=== PATIENT | female | born 1980 | race Caucasian/White ===

== ENCOUNTER → 2016-07-02 | Outpatient (CLI) | payer OTHER ==
[~2016-07-02] MED LIST: CYMBALTA60 MG PO; FISH OIL1200 MG PO; GIN-ZING100 MG PO; OXYCODONE HCL5 MG PO; PERCOCET1 TA1 PO; SEROQUEL25 MG PO; VITAMIN B COMPLE1 PO; XANAX0.5 MG PO
== END ==
LOC: LAB SRH 18:54
DX: N93.9 Abnormal uterine and vaginal bleeding, unspecified (principal)
CPT/HCPCS: 90001; 90047; 90074; 90155; 90364; 91004; 92863; 95059; 98428

== ENCOUNTER 2016-07-05 06:01 | Day surgery (SDC) | payer OTHER ==
--- NOTE | 2016-06-01 16:26 | HISTORY AND PHYSICAL ---
ADMITTED: 06/07/2016 CHIEF COMPLAINT: 1. Pelvic pain with back pain. 2. Abnormal uterine bleeding, requesting endometrial ablation. HISTORY OF PRESENT ILLNESS: The patient has had several visits discussing her abnormal uterine bleeding and other small complaints in her life, fibromyalgia, anxiety, depression were also part of her presentation. The patient has had multiple options given. Endometrial biopsy was performed and there was normal size uterus and normal pathology. She has now been cleared for having hydrothermal ablation using Margareth 2 system [employer]. MEDICAL/SURGICAL HISTORY: Menstrual history: Onset age 17. Otherwise normal. Obstetric history: Negative. Past surgical history: Tonsillectomy, endometrial biopsy. Medical history: Fibromyalgia, depression and anxiety for which she stated that she was bedridden for 6 months at one time. Otherwise, she states she has anxiety and depression and fibromyalgia with self restraint at home in bed. MEDICATIONS: 1. Alprazolam 0.5 mg a day. 2. Cymbalta 60 mg a day. ALLERGIES: 1. none known SOCIAL HISTORY: Positive for tobacco, occasionally for alcohol. Drugs, she takes oils marijuana weekly. FAMILY HISTORY: Noncontributory, hypertension in father, maternal grandmother, maternal grandfather, paternal aunts diabetes, paternal cancer in mother, breast. Uncle has cancer, paternal grandfather has cancer. REVIEW OF SYSTEMS: Alert and oriented with her ----- in her lap. Aware of abnormal uterine bleeding. Genitourinary: Purpose of surgery. Cardiovascular: No shortness of breath or chest pain. Gastrointestinal: Normal daily bowel movements. PHYSICAL EXAMINATION: VITAL SIGNS: Weight 145, 5 feet 6, 66 inches, 110/66, pulse and temperature normal. SKIN/HAIR/INTEGUMENT: Normal. HEENT: Grossly intact. BREASTS: Not examined. LUNGS: Clear. HEART: Regular rate and rhythm. ABDOMEN: Benign. EXTREMITIES: Normal. No clubbing, cyanosis, erythema. PELVIC: Normal per exam when endometrial biopsy performed. RECTAL: Not done. LAB/IMAGING: Pending. IMPRESSION: 1. Abnormal uterine bleeding. 2. Other social and psychological issues. 3. Back pain. PLAN: Hydrothermal ablation. Informed consent given. Risks and benefits, possibility of blood loss, need for transfusion, infection, damage to pelvic and nonpelvic organs requiring additional surgery, all kinds of complications that could be noted from a motor vehicle accident. The patient understands and accepts.
[~2016-07-05 06:01] MED LIST changes: -OXYCODONE HCL5 MG PO; -PERCOCET1 TA1 PO; -SEROQUEL25 MG PO
[2016-07-05] MEDS ORDERED: PERCOCET1 TA1 PO (08:58)
--- NOTE | 2016-07-05 09:01 | Provider's Discharge Care Plan ---
Problem, Goal, Plan Problem List 1. Post-operative pain Goals: Improve disease control Instructions: Follow up as needed
--- NOTE | 2016-07-05 09:01 | Provider's Discharge Care Plan ---
Problem, Goal, Plan Problem List 1. Post-operative pain Goals: Improve disease control Instructions: Follow up as needed
--- NOTE | 2016-07-05 09:20 | OPERATIVE REPORT ---
DATE OF SURGERY: 07/05/2016 SURGEON: Kevin Nugent MD DIRECTOR OF ONLINE EDUCATION: None. PREOPERATIVE DIAGNOSES: 1. Abnormal uterine bleeding POSTOPERATIVE DIAGNOSES: 1. Abnormal uterine bleeding PROCEDURE PERFORMED: 1. Dilatation hysteroscope, hydrothermal ablation with Margareth type 2 Owl[employer] equipment ANESTHESIA: CONSTRUCTION EQUIPMENT MECHANIC Tasia, general endotracheal, 10 mL cervical block 0.25% bupivacaine and 1:200,000 epinephrine, see 4 pictures. Anesthesia for fluids and drains. SURGICAL FINDINGS: Very heavy growth of endometrial polyps, see 4 pictures. COMPLICATIONS: None. CONDITION: Good. MATERIALS: No blood, no grafts, no implants. PATHOLOGY SPECIMEN: Combined endocervical and endometrial specimens for pathology, a significant amount. SURGICAL TECHNIQUE: The patient was prepped and draped in the usual fashion after an adequate level of anesthesia and a time-out, speculum was placed. A single-tooth tenaculum was placed. The uterus sounded to normal 7 cm and a gradual dilation to 7 mm, requiring additional small amount of dilatation, we placed the equipment, visualization was performed and checked for secure fluid level was performed. The patient had a 10 minute heating ablation. No significant change in fluid volumes. Before the procedure was done, there was a significant amount of endometrial polyp tissue noted and scraping with a 10 mm curette collected approximately 5 mL of tissue and clot. The procedure was finished after 10 minutes of timing, a minute and a half to cool off. Instruments were removed, single-toothed tenaculum, hemostatic after removal. Sponge, needle, tape and instrument count was correct x2. The patient tolerated the procedure well and went to the recovery room in good condition. She will be discharged home later today on Percocet. Warnings and precautions. The patient is to follow up in 1 week. Discharge orders written.
--- NOTE | 2016-07-05 09:20 | OPERATIVE REPORT ---
DATE OF SURGERY: 07/05/2016 SURGEON: Kevin Nugent MD GERIATRIC PHYSICIAN: None. PREOPERATIVE DIAGNOSES: 1. Abnormal uterine bleeding POSTOPERATIVE DIAGNOSES: 1. Abnormal uterine bleeding PROCEDURE PERFORMED: 1. Dilatation hysteroscope, hydrothermal ablation with Margareth type 2 Pulse 8 equipment ANESTHESIA: HIDE CURER Tasia, general endotracheal, 10 mL cervical block 0.25% bupivacaine and 1:200,000 epinephrine, see 4 pictures. Anesthesia for fluids and drains. SURGICAL FINDINGS: Very heavy growth of endometrial polyps, see 4 pictures. COMPLICATIONS: None. CONDITION: Good. MATERIALS: No blood, no grafts, no implants. PATHOLOGY SPECIMEN: Combined endocervical and endometrial specimens for pathology, a significant amount. SURGICAL TECHNIQUE: The patient was prepped and draped in the usual fashion after an adequate level of anesthesia and a time-out, speculum was placed. A single-tooth tenaculum was placed. The uterus sounded to normal 7 cm and a gradual dilation to 7 mm, requiring additional small amount of dilatation, we placed the equipment, visualization was performed and checked for secure fluid level was performed. The patient had a 10 minute heating ablation. No significant change in fluid volumes. Before the procedure was done, there was a significant amount of endometrial polyp tissue noted and scraping with a 10 mm curette collected approximately 5 mL of tissue and clot. The procedure was finished after 10 minutes of timing, a minute and a half to cool off. Instruments were removed, single-toothed tenaculum, hemostatic after removal. Sponge, needle, tape and instrument count was correct x2. The patient tolerated the procedure well and went to the recovery room in good condition. She will be discharged home later today on Percocet. Warnings and precautions. The patient is to follow up in 1 week. Discharge orders written.
[2016-10-15] MEDS ORDERED: SEROQUEL25 MG PO (12:31)
[2016-10-15] MEDS ORDERED: OXYCODONE HCL5 MG PO (12:32)
== END 2016-07-05 11:30 | disposition home or self-care (01) ==
LOC: OR SRH 06:01 → SCU SRH 06:33
PROVIDERS: Obstetrics & Gynecology
PROC: 0UDB8ZX Extraction of Endometrium, Via Natural or Artificial Opening Endoscopic, Diagnostic (ICD-10-PCS; principal; 2016-07-05 07:30)
PROC: 0U5B8ZZ Destruction of Endometrium, Via Natural or Artificial Opening Endoscopic (ICD-10-PCS; principal; 2016-07-05 07:30)
DX: N93.9 Abnormal uterine and vaginal bleeding, unspecified (principal); N84.0 Polyp of corpus uteri; R10.2 Pelvic and perineal pain
CPT/HCPCS: 29240; 50002; 60001; 70002; 80212; 80575; 80996; 83432

== ENCOUNTER 2016-09-18 15:23 | Outpatient (CLI) | payer OTHER ==
[~2016-09-18 15:23] MED LIST changes: +PERCOCET1 TA1 PO
[2016-10-15] MEDS ORDERED: SEROQUEL25 MG PO (12:31)
[2016-10-15] MEDS ORDERED: OXYCODONE HCL5 MG PO (12:32)
== END 2016-09-18 23:00 ==
LOC: LAB SRH 15:23
DX: N93.9 Abnormal uterine and vaginal bleeding, unspecified (principal)
CPT/HCPCS: 90074; 93140; 95059; 98428

== ENCOUNTER 2016-09-28 14:58 | Outpatient (CLI) | payer OTHER ==
--- NOTE | 2016-09-28 16:36 | DIAGNOSTIC IMAGING REPORT ---
PROCEDURE: US COMPLETE PELVIC W/TRANSVAG INDICATION: AUB TECHNIQUE: Transabdominal and endovaginal hernandez scale and color Doppler sonographic images of the female pelvis were obtained. COMPARISON: None. FINDINGS: TRANSABDOMINAL SCANS: Retroverted uterus. Left adnexal cyst. Normal kidneys. TRANSVAGINAL SCANS: The uterus measures 7.8 x 3.9 x 5.7 cm. There is a 2.4 x 2.2 x 1.4 cm heterogeneous area in the posterior myometrium suggestive of a fibroid. Normal endometrium measures 5.9 mm. Enlarged left ovary measures 7.1 x 4.9 x 4.6 cm with a 2.6 cm simple cyst and adjacent 6.1 x 5.9 x 4.2 cm hypoechoic mass with homogeneous internal echoes suggestive of a hemorrhagic cyst or endometrioma. Right ovary measures 2.5 x 2.1 x 2.7 cm with a 2 cm corpus luteum cyst. No free fluid in the cul-de-sac. IMPRESSION: 1. Retroverted uterus with 2.4 cm suspected posterior fibroid 2. 6.1 cm left ovarian hemorrhagic cyst versus endometrioma with additional 2.6 cm simple cyst.
[2016-10-15] MEDS ORDERED: SEROQUEL25 MG PO (12:31)
[2016-10-15] MEDS ORDERED: OXYCODONE HCL5 MG PO (12:32)
== END 2016-09-28 23:00 ==
LOC: US SRH 14:58
DX: N93.9 Abnormal uterine and vaginal bleeding, unspecified (principal); N85.4 Malposition of uterus

== ENCOUNTER 2016-10-15 16:12 | Outpatient (CLI) | payer OTHER ==
[~2016-10-15 16:12] MED LIST changes: +OXYCODONE HCL5 MG PO; +SEROQUEL25 MG PO
== END 2016-10-15 23:00 ==
LOC: LAB SRH 16:12
DX: N93.9 Abnormal uterine and vaginal bleeding, unspecified (principal)
CPT/HCPCS: 90001; 90004; 90047; 90074; 90155; 90197; 90364; 90469; 91004; 92863; 95059

== ENCOUNTER 2016-10-18 07:19 | Day surgery (SDC) | payer OTHER ==
--- NOTE | 2016-10-08 16:32 | HISTORY AND PHYSICAL ---
ADMITTED: 10/18/2016 CHIEF COMPLAINT: 1. Persistent pain, status post unsuccessful hydrothermal ablation for pelvic pain and abnormal uterine bleeding HISTORY OF PRESENT ILLNESS: For reference, see history and physical on procedure done in the past few months. The patient has had return of bleeding and pelvic pain and has pain with intercourse. She has an ultrasound that was performed 09/28/2016, 1 week previous, showing enlarged area, approximately a 2.4 cm, consistent with a 1-inch fibroid in the posterior myometrium. She also has a large left ovarian mass, greater than 7 cm, simple cyst, and hypoechoic masses suggestive of hemorrhage or hemorrhagic cyst or endometrioma. The right ovary is essentially normal. Additional information with regard to this potential pain and drainage of the cyst as well as left ovary removal are discussed for possibilities during . I had a long discussion about the supracervical hysterectomy, possible seeding, and her age of 36 and the possibility of loss of one of her ovaries. Also cancer was discussed, as a rare possibility. Informed consent was given to the patient. Risks, benefits, complications, alternatives, possibility of blood loss, need for transfusion, infection, damage to pelvic and nonpelvic organs requiring additional surgery, were discussed with the patient. She understands and accepts. Those were given to the patient with her last surgery. The risks and benefits were also described in more detail, since this is a more extensive surgery than hydrothermal ablation. MEDICAL/SURGICAL HISTORY: Menstrual history: Onset age 17. Contraception: Negative history. history: Negative. history: Negative. Past surgical history: Tonsillectomy, endometrial biopsy, endometrial ablation, unsuccessful. Medical history: Fibromyalgia, pelvic pain in general. MEDICATIONS: 1. Seroquel 25 mg. 2. Alprazolam 0.5 mg for anxiety. ALLERGIES: 1. ERYTHROMYCIN. HAS AN INTOLERANCE ONLY, CAUSING VOMITING. SOCIAL HISTORY: Light tobacco smoke, light alcohol, light marijuana use. FAMILY HISTORY: Mother, father, siblings: Benign. Hypertension in the father, maternal aunt. Diabetes in maternal grandfather, paternal uncle. Breast cancer in mother. REVIEW OF SYSTEMS: Benign. The patient is alert and oriented x3, doing well. Genitourinary: Purpose of the surgery. Cardiovascular: No shortness of breath or chest pain. Gastrointestinal: Normal daily bowel movements. PHYSICAL EXAMINATION: VITAL SIGNS: The patient is 5 feet 6 inches, 136 pounds. Blood pressure 114/68, pulse and temperature normal. SKIN/HAIR/INTEGUMENT: Normal grossly. HEENT: Grossly negative. BREASTS: Exam not done. LUNGS: Clear. HEART: Regular rate and rhythm. ABDOMEN: Benign. EXTREMITIES: Normal. No significant clubbing, cyanosis, erythema or edema. PELVIC: As previously noted with the previous surgery. Tenderness. PELVIC/RECTAL: Exam not done. Pelvic and rectal are from previous exams. LAB/IMAGING: Laboratory pending. IMPRESSION: 1. Persistent bleeding 2. Failed hydrothermal ablation. 3. Pelvic pain 4. Left ovarian cyst PLAN: Informed consent with risks and benefits given to the patient in detail. Plan is for a 3 or 4 puncture laparoscopic hysterectomy, supracervical in nature, possibility of seeding in the future was given to the patient, as well as possible left cyst removal, possibility of loss of the left ovary. The patient understands and accepts.
[~2016-10-18] VITALS: Ht 170.2 cm; Wt 61.3 kg
--- NOTE | 2016-10-18 08:42 | NUR ---
PREOP INSTRUCTIONS GIVEN TO PATIENT AND HER COUSIN. QUESTIONS ANSWERED. PATIENT VERBALIZES UNDERSTANDING. CONSENT CONFIRMED. NO PREOP MEDICATIONS GIVEN. PATIENT RESTING COMFORTABLY. KB
[2016-10-18] MEDS ORDERED: PERCOCET1 TA1 PO (11:37)
--- NOTE | 2016-10-18 12:04 | NUR ---
PT IS AWAKE AND ALERT. PT DENIES NAUSEA. PT STATES THAT HER ABDOMINAL AMANDA IS " MUCH BETTER" AFTER FENTANYL 25MC IV X 4. TORADOL 30MG IV WAS GIVEN BY ANESTESIA PROVIDER AT 1115. OFIRMEV 1000 MG IV WAS GIVEN AT 0945 ( SEE ANESTESIA RECORD). ABDOMEN IS SOFT, DRESSING IS CLEAN AND DRY. VSS. THERE IS NO EVIDENCE OF VAGINAL BLEEDING. MD TALKED TO PT IN PACU. QUESTIONS ENCOURAGED AND ANSWERED. PT VERBALIZED UNDERSTANDING. REPORT GIVEN TO RN.
--- NOTE | 2016-10-18 12:49 | NUR ---
PATIENT RETURNED TO THE FLOOR AWAKE AND TALKING. VSS. APPEARS PALE. DENIES NAUSEA. PO OFFERED. KB
--- NOTE | 2016-10-18 13:02 | NUR ---
OXYCODONE 10MG PO GIVEN. REPOSITIONED. LIGHTS DIMMED. KB
--- NOTE | 2016-10-18 13:53 | OPERATIVE REPORT ---
DATE OF SURGERY: 10/18/2016 SURGEON: Kevin Nugent MD FRAME SAMPLE AND PATTERN SUPERVISOR: Maria Guadalupe Hays MD. Consulting Surgeon Dr. Neal general surgery for adhesions of the posterior uterus to large bowel, extensive. PREOPERATIVE DIAGNOSIS: 1. Abnormal uterine bleeding persisting after a failed hydrothermal ablation for amenorrhea, pelvic pain POSTOPERATIVE DIAGNOSES: 1. Stage IV endometriosis in the pelvis 2. A 7 cm left endometrioma 3. Multiple adhesions PROCEDURE PERFORMED: 1. 5 Port Operative Laparoscopy 2. Extensive lysis of adhesions/endometriosis in pelvis 3. Supracervical hysterectomy by morcellation 4. Bilateral salpingectomy 5. Left oophorectomy and drainage of 7 cm endometrioma with lysis of adhesions ANESTHESIA: General endotracheal. ANESTHESIOLOGIST: WANDA Snow 25 mL of local for 5 port sites, 0.5 bupivacaine with 1:200,000 epinephrine. SURGICAL FINDINGS: As noted in the surgical procedure. Stage 4 endometriosis socked in the pelvis, left chocolate cyst/endometrioma of ovary, significant adhesions posterior fundus of the uterus to large bowel, requiring surgical consult for safe dissection. SURGICAL TECHNIQUE: The patient was prepped and draped in the usual fashion. 2 g of Ancef had been given and a time-out procedure was done. The 4 ports were placed in the usual fashion. An 11 mm subumbilical with 2 liters of CO2 insufflated. A 5 mm suprapubically and two 5 mm laterally. The abdomen was visualized. Due to significant pelvic adhesions, a larger than average amount of Trendelenburg was used to identify and elevate the uterus in the pelvis, some milder fundal adhesions were dissected, see 11 pictures. There was some left adnexal dissection performed, we started posterior and there was seen to be thicker adhesions were obvious bowel. At this point, Dr. Neal was called. It was several minutes before he came in, we the right ovary and tube the uterus and then the transverse cervical ligaments to some extent and then we worked on the left, which was more difficult due to the significant adhesions and a 7 cm ovary which turned out to be a chocolate cyst/endometrioma. At this point, Dr. Neal entered. See his dictation. After Dr. Neal exposed the nature of the chocolate cyst, endometriosis and performed extensive dissection posterior to the uterus and this large bowel, good hemostasis was noted throughout. We proceeded with a simple procedure of supracervical hysterectomy removing the pieces through the 15 mm morcellator. All small specimens were removed to minimize seeding with infusion of 1+ liters to irrigate and dilute any particulate matter in the pelvis. Good hemostasis and good cauterization of the small endocervical canal and the procedure was terminated. The gas was allowed to escape. Dr. Neal had placed a fifth port lateral to the subumbilical, there were no significant complications in the course or difficulty and no significant blood loss. The patient might stay overnight due to some slow resolution of gastrointestinal function. At the end of the case, the 2 incisions 11 and 15 mm had a [id number] of 4-0 poly used and Steri-Strips. The patient did well. Sponge, needle, tape and instrument count was correct x2. The patient tolerated the procedure well and went to the recovery room in good condition.
--- NOTE | 2016-10-18 14:24 | NUR ---
PATIENT RESTING COMFORTABLY. VSS. KB
--- NOTE | 2016-10-18 15:42 | NUR ---
PATIENT UP TO BR. VERY PALE. VOIDED SMALL AMOUNT. DRESSINGS DRY WITH SMALL AMOUNTS OF BLOOD. NO ACTIVE BLEEDING. NO VAGINAL DISCHARGE. PAIN 12/17. DILAUDID 1MG/ZOFRAN 4MG FOR NAUSEA AND PAIN. WILL TRANSFER TO ACUTE CARE TO CONTINUE RECOVERY. IV AT TKO. KB
--- NOTE | 2016-10-18 18:16 | NUR ---
PATIENT C/O ITCHING AFTER BEING MEDICATED WITH PO OXYCODONE AND IV HYDROMORPHONE. MEDICATED WITH VISTARIL PO ORDERED. PATIENT AMB UP IN [facility] FOR 1 LOOP, TOLERATED WELL WITH FAMILY AMBULATING WITH PATIENT. TOLERATING PO FOOD/ FLUIDS WITHOUT ANY N/V. WILL CONTINUE TO MONITOR.
[2016-10-18 18:19] VITALS: BP 99/60
[2016-10-18 21:01] VITALS: BP 98/72
[2016-10-19 00:30] VITALS: BP 98/49
[2016-10-19 05:00] VITALS: BP 86/42
[2016-10-19 09:08] VITALS: BP 101/61
--- NOTE | 2016-10-19 09:14 | NUR ---
Pain controlled with medications administered. Patient up and about in halls walking. Discussion regarding diet, discharge, adhesions, healing, follow up care held with family member present. Dr Nugent has been here to write discharge orders. F/U appointment made. Abdominal bandages have old blood and some bruising on them. Will replace prior to discharge. Bowel sounds audible all quadrants, no flatus or stool. Patient eating light breakfast.
--- NOTE | 2016-10-19 10:01 | Provider's Discharge Care Plan ---
Problem, Goal, Plan Problem List 1. Post-operative pain Goals: Improve disease control Instructions: Follow up as needed
--- NOTE | 2016-10-19 10:01 | Provider's Discharge Care Plan ---
Problem, Goal, Plan Problem List 1. Post-operative pain Goals: Improve disease control Instructions: Follow up as needed
--- NOTE | 2016-10-19 10:41 | NUR ---
Pt discharged to home in care of family member. All her abd dressings that had old drainage on them were changed, and fresh ones given to patient to use at home. Follow up appointment already made for Saturday, October 22. Pt has assistance at home, and RX has already been filled by family. Discharged to home at 1030.
--- NOTE | 2016-10-29 07:07 | OPERATIVE REPORT ---
DATE OF SURGERY: 10/18/2016 SURGEON: Anita Neal III, MD PREOPERATIVE DIAGNOSIS: 1. Colouterine adhesions POSTOPERATIVE DIAGNOSIS: 1. Colouterine adhesions PROCEDURES PERFORMED: 1. Laparoscopic lysis of adhesions. INDICATIONS: The patient is a female who is undergoing a supracervical hysterectomy by Dr. Nugent for abnormal uterine bleeding and failed hydrothermal ablation. During the course of the laparoscopic supracervical hysterectomy, the patient was noted to have a portion of her rectosigmoid firmly adherent to the posterior wall of the uterus. Dr. Nugent asked for a surgical consultation SURGICAL FINDINGS: The patient was noted to have an anterior portion of the rectosigmoid firmly adherent to the lower portion of the posterior uterus and the left ovary. SURGICAL TECHNIQUE: While in the operating room, performing another case, I was told by the nurse that Dr. Nugent, who was performing laparoscopic supracervical hysterectomy, needed a surgical consultation in his room. I completed my case and then entered the room where Dr. Nugent exposed the posterior aspect of the uterus and asked if I could assist in taking these adhesions down, rather than risk a colotomy or enterotomy. After scrubbing and donning a sterile gown and gloves, I proceeded to observe the pelvis using the laparoscope and suggested a second 5 mm trocar be inserted for better manipulation. This was placed in the right anterior abdominal wall. Using a combination of blunt dissection and the Thunderbeat, we were able to tediously take down the portion of the rectosigmoid from the posterior uterus and exposing the left ovary and a large chocolate ovarian cyst. We were able to take down enough of the adhesive process so that Dr. Nugent could then complete his supracervical hysterectomy. At this point, the case was turned back over to Dr. Nugent, who completed the supracervical hysterectomy, bilateral salpingo-oophorectomy.
== END 2016-10-19 10:30 | disposition home or self-care (01) ==
LOC: SCU SRH 07:19 → OR SRH 07:19 → OB SRH 17:13 → OR SRH 10-19 10:30
PROVIDERS: Obstetrics & Gynecology
PROC: 0DNG4ZZ Release Left Large Intestine, Percutaneous Endoscopic Approach (ICD-10-PCS; principal; 2016-10-18 09:00)
PROC: 0UT94ZZ Resection of Uterus, Percutaneous Endoscopic Approach (ICD-10-PCS; principal; 2016-10-18 09:00)
PROC: 0UT74ZZ Resection of Bilateral Fallopian Tubes, Percutaneous Endoscopic Approach (ICD-10-PCS; principal; 2016-10-18 09:00)
PROC: 0UT14ZZ Resection of Left Ovary, Percutaneous Endoscopic Approach (ICD-10-PCS; principal; 2016-10-18 09:00)
DX: N80.3 Endometriosis of pelvic peritoneum (principal); N80.1 Endometriosis of ovary; N73.6 Female pelvic peritoneal adhesions (postinfective)